=== PATIENT | male | born 1940 | race Caucasian/White ===

== ENCOUNTER 2024-05-12 10:01 | Outpatient (CLI) | payer MEDICARE, BC ==
[~2024-05-12] VITALS: Ht 180.3 cm; Wt 85.5 kg
[2024-05-12] VITALS (7 sets, daily range): BP systolic 95–124; BP diastolic 59–70; PULSE 64–78; TEMP 97.9
[~2024-05-12 10:01] MED LIST: ASPIRIN 32325 MG/TAB PO; ASPIRIN 81M81 MG/TA2 PO; CLARITIN 1010 MG/TAB PO; ENTOCORT EC3 MG PO; GLUCOPHAGE1000 MG PO; JANUVIA50 MG PO; NORCO 325 MG-7.1 TAB PO; OTEZLA PO; PRESERVISION A1 EAC3 PO; PRILOSEC 20MG20 MG PO; ROXICODONE 55 MG/TAB PO; SKYRIZI PE150 MG/1 M SQ; TEMOVATE0.05% TP; ZOCOR 10MG10 MG PO
[2024-05-12] MEDS ORDERED: FLOMAX 0.40.4 MG/CAP PO (10:58)
[2024-05-12] MEDS ORDERED: FENTANYL 50MCG TD (11:05)
[2024-05-12] MEDS ORDERED: PERCOCET 325 MG1 TA2 PO (11:05)
[2024-05-12] MEDS ORDERED: LR 1,000 ML IV SCH (12:00)
--- NOTE | 2024-05-12 13:17 | NUR ---
Please see merge documentation for record of interventions, vitals and medications administered during vertebroplasty with dr. paris
[2024-05-12] MEDS ORDERED: fentaNYL 50 MCG/ML 2 ML VIAL IV SCH (13:24)
[2024-05-12] MEDS ORDERED: Midazolam 2 MG/2 ML VIAL IV SCH (13:24)
--- NOTE | 2024-05-12 15:20 | NUR ---
Dr Wilkins in to speak with pt and . He states pt may DC home, he will complete discharge paperwork and pt may discharge.
--- NOTE | 2024-05-12 15:39 | NUR ---
DC instructions reviewed with pt and . Both express understanding. Pt states pain has improved following procedure. He is able to ambulate to restroom using walker with steady gait and appears more comfortable with less grimacing compared to pre procedure activity. Bandaids remain clean, dry and intact. Pt refused food during recovery period but has been drinking water without difficulty. He slept through majority of recovery period but is now fully awake and eager to discharge home. IV DC'd, site wrapped with coban. Pt assisted out to 's car by wheelchair with belongings.
== END 2024-05-12 15:39 | disposition home or self-care (01) ==
LOC: COL.CAR 10:01
DX: M48.56XA Collapsed vertebra, not elsewhere classified, lumbar region, initial encounter for fracture (principal); Z87.891 Personal history of nicotine dependence
CPT/HCPCS: C1713; J0665-JZ; J2250; J3010; J7120